=== PATIENT | male | born 1970 | race Caucasian/White ===

== ENCOUNTER 2016-03-25 08:15 | Emergency (ER) | payer BC ==
[2016-03-25 08:20] VITALS: BP 143/94
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
[2016-03-25] MEDS ORDERED: LORazepam TAB(*) 1 MG PO ONE (08:49)
[2016-03-25 09:13] LABS: Hematocrit 46 % (42-52); Hemoglobin 15.6 g/dl (14.0-18.0); Mean Corpuscular HGB Conc 34 g/dl (31-36); Mean Corpuscular Hemoglobin 29 pg (27-31); Mean Corpuscular Volume 85 fL (80-94); Mean Platelet Volume 8 um3 (7.4-10.4); Red Cell Distribution Width 13 % (10.5-15); White Blood Count 11.1 10^3/ul (3.5-10.8)
[2016-03-25 09:35] LABS: ALT 33 U/L (7-52); AST 17 U/L (13-39); Albumin 4.3 g/dL (3.2-5.2); Alkaline Phosphatase 75 U/L (34-104); Anion Gap 9 mmol/L (2-11); Blood Urea Nitrogen 24 mg/dL (6-24); CO2 Carbon Dioxide 22 mmol/L (22-32); Calcium 9.7 mg/dL (8.6-10.3); Chloride 106 mmol/L (101-111); EGFR Non-African American 39.6 (>60); Globulin 3.3 g/dL (2-4); Glucose 122 mg/dL (70-100); Potassium 4.1 mmol/L (3.5-5.0); Sodium 137 mmol/L (133-145); Total Protein 7.6 g/dL (6.4-8.9)
[2016-03-25 10:03] LABS: Acetaminophen < 15 mcg/mL; Alcohol < 10 mg/dL (<10); Salicylate < 2.50 mg/dL (<30)
[2016-03-25 10:09] LABS: Urine Bacteria Absent (Absent); Urine Bilirubin Negative (Negative); Urine Glucose Negative (Negative); Urine Nitrite Negative (Negative)
[2016-03-25 10:10] LABS: TSH (Thyroid Stimulating Horm) 0.88 mcIU/mL (0.34-5.60)
[2016-03-25 10:18] LABS: Benzodiazepine Urine Screen None Detected (None Detect)
== END 2016-03-25 13:23 | disposition home or self-care (01) ==
LOC: ED 08:15
DX: G47.9 Sleep disorder, unspecified (principal); F32.9 Major depressive disorder, single episode, unspecified; R10.9 Unspecified abdominal pain
CPT/HCPCS: 36415; 80053; 80307; 80320; 80329; 81003; 81015; 84443; 84484; 85025; 93005; 99284; A9270-GY; G0480

== ENCOUNTER 2017-03-25 22:07 | Emergency (ER) | payer BC ==
[2017-03-26] MEDS ORDERED: oxyCODONE/Acetamin 5/325 MG* TAB PO ONE (01:15)
[2017-03-26] MEDS ORDERED: predniSONE TAB* 20 MG PO ONE (01:15)
[2017-03-26 01:16] VITALS: BP 123/82
--- NOTE | 2017-03-26 01:32 | ED ---
Ray Gooden Tecjoon, scribed for Jennyfer Chavez MD on 03/25/17 at 2328 . Lower Extremity - HPI Summary HPI Summary: This patient is a 46 year old male presenting to [facility] with a chief complaint of sudden onset of left foot pain since 1900 today. The pain is described as an ache that became progressively worse. The pain is rated 8/10 in severity. Symptoms aggravated by nothing. Symptoms alleviated by nothing. Patient treated the pain with Motrin FEED WEIGHER. Patient denies fever. No HX of trauma - History of Current Complaint Chief Complaint: EDExtremityLower Stated Complaint: LT FOOT PAIN Time Seen by Provider: 03/25/17 23:12 Hx Obtained From: Patient Onset/Duration: Hours Severity Initially: Moderate Severity Currently: Moderate Pain Intensity: 8 Pain Scale Used: 0-10 Numeric Timing: Constant Location: Is Discrete @ - left ankle Associated Signs And Symptoms: Negative: Fever Aggravating Factor(s): Nothing Alleviating Factor(s): Nothing - Allergies/Home Medications Allergies/Adverse Reactions: Allergies Allergy/AdvReac Type Severity Reaction Status Date / Time codeine Allergy Nausea Verified 03/25/17 22:11 Iodinated Contrast- Oral and Allergy Difficulty Verified 03/25/17 22:11 IV Dye Breathing tramadol Allergy Nausea Verified 03/25/17 22:11 PMH/Surg Hx/FS Hx/Imm Hx Previously Healthy: No Endocrine/Hematology History: Denies: Hx Diabetes Cardiovascular History: Reports: Hx Angina, Hx Hypercholesterolemia, Hx Hypertension Denies: Hx Pacemaker/ICD Respiratory History: Reports: Hx Sleep Apnea - current CPAP user, compliant Denies: Hx Asthma, Hx Chronic Obstructive Pulmonary Disease (COPD) History: Reports: Hx Kidney Stones, Hx Renal Disease, Other Problems/ Disorders - chronic nephritis, lesion in kidney, calculus of kidney Sensory History: Reports: Hx Contacts or Glasses Denies: Hx Hearing Aid Opthamlomology History: Reports: Hx Contacts or Glasses Neurological History: Reports: Hx Headaches Psychiatric History: Denies: Hx Eating Disorder, Hx Panic Disorder, Hx of Violent Episodes Against Others - Cancer History Cancer Type, 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 Hx Chemotherapy: No - Surgical History Surgery Procedure, Year, and Place: 03/2013 - (right)partial kidney removal, [facility] Infectious Disease History: No Infectious Disease History: Reports: Hx Shingles Denies: Traveled Outside the [place] in Last 30 Days - Family History Known Family History: Positive: Cardiac Disease, Hypertension - Social History Alcohol Use: Rare Hx Substance Use: No Substance Use Type: Reports: None Hx Tobacco Use: Yes Smoking Status (MU): Former Smoker Type: Cigarettes Amount Used/How Often: socially Length of Time of Smoking/Using Tobacco: 1.5 years Have You Smoked in the Last Year: No Review of Systems Negative: Fever Positive: Other - left foot pain All Other Systems Reviewed And Are Negative: Yes Physical Exam - Summary Physical Exam Summary: VITAL SIGNS: Reviewed. GENERAL: Patient is a well-developed and nourished male who is lying comfortable in the stretcher. Patient is not in any acute respiratory distress. HEAD AND FACE: No signs of trauma. No ecchymosis, hematomas or skull depressions. No sinus tenderness. EYES: PERRLA, EOMI x 2, No injected conjunctiva, no nystagmus. EARS: Hearing grossly intact. Ear canals and tympanic membranes are within normal limits. MOUTH: Oropharynx within normal limits. NECK: Supple, trachea is midline, no adenopathy, no JVD, no carotid bruit, no c- spine tenderness, neck with full ROM. CHEST: Symmetric, no tenderness at palpation LUNGS: Clear to auscultation bilaterally. No wheezing or crackles. CVS: Regular rate and rhythm, S1 and S2 present, no murmurs or gallops appreciated. ABDOMEN: Soft, non-tender. No signs of distention. No rebound no guarding, and no masses palpated. Bowel sounds are normal. EXTREMITIES: FROM in all major joints, no edema. Tenderness over the left midfoot. NEURO: Alert and oriented x 3. No acute neurological deficits. Speech is normal and follows commands. SKIN: Dry and warm Triage Information Reviewed: Yes Vital Signs On Initial Exam: Initial Vitals Temp Pulse Resp BP Pulse Ox 98.4 F 97 18 132/97 98 03/25/17 22:11 03/25/17 22:11 03/25/17 22:11 03/25/17 22:11 03/25/17 22:11 Vital Signs Reviewed: Yes Diagnostics - Vital Signs Vital Signs Temp Pulse Resp BP Pulse Ox 03/25/17 22:11 98.4 F 97 18 132/97 98 - Laboratory Lab Statement: Any lab studies that have been ordered have been reviewed, and results considered in the medical decision making process. - Radiology Foot XR Xray Interpretation: No Acute Changes - Foot XR reveals, per radiologist, IMPRESSION: No evidence of fracture. ED physician has reviewed this radiology report. Radiology Interpretation Completed By: Radiologist Lower Extremity Course/Dx - Course Course Of Treatment: This patient is a 46 year old male presenting to [facility] with a chief complaint of left foot pain since 1900 today. The pain is described as an ache that became progressively worse. Foot XR reveals, per radiologist, IMPRESSION: No evidence of fracture. ED physician has reviewed this radiology report. Bloodwork Obtained. Urinalysis Obtained. In the ED course the patient was given Deltasone, Oxycodone. Patient will be diagnosed with left foot gout. Patient has a hx of renal insufficiency and as a result, cannot be treated with NSAIDs. Patient will instead be treated with steroids. Patient will be discharged and advised to follow up with PCP in 3 days. The patient is agreeable with this plan. - Diagnoses Provider Diagnoses: Gout of left foot Discharge - Discharge Plan Condition: Stable Disposition: HOME Prescriptions: oxyCODONE/Acetamin 5/325 MG* [Percocet 5/325 TAB*] 1 tab PO Q6H PRN #14 tab MDD 4 PRN Reason: Pain predniSONE TAB* [Deltasone TAB*] 40 mg PO DAILY #14 tab Patient Education Materials: Gout (ED) Referrals: Cory Duron MD [Primary Care Provider] - 3 Days Additional Instructions: Return to the ED for any new or worsening symptoms. The documentation as recorded by the Ray edwards Tecjoon accurately reflects the service I personally performed and the decisions made by Scott marie Abdul, MD.
--- NOTE | 2017-03-26 08:09 | RAD ---
HISTORY: Left foot pain COMPARISONS: None VIEWS: 3, Frontal, lateral, and oblique views of the left foot FINDINGS: BONE DENSITY: Normal. BONES: There is no displaced fracture. JOINTS: There is no arthropathy. ALIGNMENT: There is no dislocation. SOFT TISSUES: Unremarkable. OTHER FINDINGS: None. IMPRESSION: NO ACUTE OSSEOUS INJURY. IF SYMPTOMS PERSIST, RECOMMEND REPEAT IMAGING.
== END 2017-03-26 02:05 | disposition home or self-care (01) ==
LOC: ED 22:07
DX: M10.9 Gout, unspecified (principal); Z87.891 Personal history of nicotine dependence; Z88.5 Allergy status to narcotic agent; Z91.041 Radiographic dye allergy status
CPT/HCPCS: 99282; A9270-GY; J7512

== ENCOUNTER 2018-02-21 13:36 | Observation (INO) | payer BC ==
[2018-02-21] MEDS ORDERED: hydrALAZINE IV* 20 MG/ML VIAL IV SLOW PU ONE (15:58)
[2018-02-21] MEDS ORDERED: hydrALAZINE IV* 20 MG/ML VIAL ONE (15:58)
[2018-02-21] MEDS ORDERED: HYDROmorphone INJ* 2 MG/ML CARPUJECT SYRINGE IV SLOW PU ONE ×2 (16:40→19:02)
[2018-02-21] MEDS ORDERED: Ondansetron INJ* 2 MG/ML VIAL IV ONE (16:40)
[2018-02-21] MEDS ORDERED: HYDROmorphone INJ* 0.5 MG/0.5 ML SYRINGE ONE (16:49)
[2018-02-21 17:09] LABS: ABS Basophils 0 10^3/ul (0-0.2); ABS Eosinophils 0.1 10^3/ul (0-0.6); ABS Lymphocytes 1.1 10^3/ul (1.0-4.8); ABS Monocytes 0.4 10^3/ul (0-0.8); ABS Neutrophils 4.3 10^3/ul (1.5-7.7); ABS Nucleated RBC 0 10^3/ul; Eosinophil % 2.2 %; Hematocrit 45 % (42-52); Hemoglobin 15.8 g/dl (14.0-18.0); Lymphocyte % 19.1 %; Mean Corpuscular HGB Conc 35 g/dl (31-36); Mean Corpuscular Hemoglobin 31 pg (27-31); Mean Corpuscular Volume 87 fL (80-94); Mean Platelet Volume 8.1 fL (7.4-10.4); Nucleated Red Blood Cells % 0.2; Platelet Count 216 10^3/ul (150-450); Red Blood Count 5.16 10^6/ul (4.00-5.40); Red Cell Distribution Width 14 % (10.5-15)
[2018-02-21 17:31] LABS: Activated Partial Thrombo Time 32.5 seconds (26.0-36.3); INR 0.86 (0.77-1.02)
[2018-02-21 17:40] LABS: Albumin 4.4 g/dL (3.2-5.2); Albumin/Globulin Ratio 1.8 (1-3); BUN/Creatinine Ratio 14.6 (8-20); C Reactive Protein 1.33 mg/L (<8.01); Calcium 10.1 mg/dL (8.6-10.3); EGFR Non-African American 46.8 (>60); Globulin 2.4 g/dL (2-4); Potassium 4.1 mmol/L (3.5-5.0); Total Bilirubin 0.5 mg/dL (0.2-1.0); Total Protein 6.8 g/dL (6.4-8.9)
[2018-02-21] MEDS ORDERED: cloNIDine TAB* 0.1 MG ONE (18:17)
[2018-02-21] MEDS ORDERED: Enalaprilat IV* 1.25 MG/ML 2 ML VIAL (2.5 MG) IV ONE (18:23)
[2018-02-21 18:25] LABS: Erythrocyte Sed Rate 11 mm/Hr (0-14)
--- NOTE | 2018-02-21 18:57 | ED ---
Headache - HPI Summary HPI Summary: Patient presents with severe headache associated with jaw and posterior neck pain. Reports as throbbing. This started 2 weeks ago on a Tuesday. He was able to get through this then as it was not as bad. He reports it lasted about 16 hrs and did take an ibuprofen then. Had a repeat episode the following Tuesday and decided to see his dentist on Tuesday -reports dentist looked in the patient' s mouth and tapped on teeth, etc. and felt that there was nothing dental contributing to his pain. Pt states pain was controlled Tuesday. He is here today with return of pain which is worse since it's been at onset. He reports a throbbing pounding sensation in both sides of his neck and jaw and head. This is worse with moving his jaw, touching any part of his face or neck. He has had mild nausea with severe pain but no vomiting. He also has a "fuzzy TV screen" scotoma in his Lt vision. He also denies nasal congestion, sore throat, throat fullness, dysphagia, ear pain or pressure, sneezing, coughing, fever, chills, abdominal pain, chest pain, shortness of breath, back pain, numbness, tingling, weakness, memory issues or confusion, or balance issues. He denies any recent head injuries or falls and no known history of issues with his neck including arthritis or degenerative disc disease. H/o MANDUJANO's but never like this - has taken excederin in the past but was taking too much and having rebound MANDUJANO' s so tries to avoid too much med for MANDUJANO now. He does have HTN which requires multiple medications to control (currently on 4 ) and admits one of his meds was switched last month (he doesn't recall which one). Has not missed any meds. 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 Has been taking eliquis since to prevent further clotting. No current kidney injury of note. - History Of Current Complaint Chief Complaint: EDHeadache Stated Complaint: JAW PAIN/HBP/HEADACHE AND NECK PAIN Time Seen by Provider: 02/21/18 15:25 Hx Obtained From: Patient, Family/Ice Delivery Driver - - Allergies/Home Medications Allergies/Adverse Reactions: Allergies Allergy/AdvReac Type Severity Reaction Status Date / Time codeine Allergy Nausea Verified 02/16/18 22:11 Iodinated Contrast- Oral and Allergy Difficulty Verified 03/25/17 22:11 IV Dye Breathing tramadol Allergy Nausea Verified 03/25/17 22:11 Home Medications: Home Medications Apixaban* [Eliquis*] 2.5 mg PO BID 02/21/18 [History Confirmed 02/21/18] Furosemide 20 mg PO DAILY 02/21/18 [History Confirmed 02/21/18] Labetalol HCl 300 mg PO TID 02/21/18 [History Confirmed 02/21/18] Losartan Potassium 25 mg PO DAILY 02/21/18 [History Confirmed 02/21/18] PMH/Surg Hx/FS Hx/Imm Hx Previously Healthy: Yes Endocrine/Hematology History: Reports: Hx Anticoagulant Therapy - eliquis, Hx Coagulopothy - ? Denies: Hx Diabetes, Hx Thyroid Disease, Hx Anemia, Autoimmune Disease Cardiovascular History: Reports: Hx Angina, Hx Hypercholesterolemia, Hx Hypertension - on 4 meds Denies: Hx Aneurysm, Hx Myocardial Infarction, Hx Pacemaker/ICD Respiratory History: Reports: Hx Sleep Apnea - current CPAP user, compliant Denies: Hx Asthma, Hx Chronic Obstructive Pulmonary Disease (COPD) History: Reports: Hx Kidney Stones, Hx Renal Disease, Other Problems/ Disorders - chronic nephritis, renal carcinoma, calculus of kidney Musculoskeletal History: Denies: Hx Arthritis Sensory History: Reports: Hx Contacts or Glasses Denies: Hx Hearing Aid Opthamlomology History: Reports: Hx Contacts or Glasses Neurological History: Reports: Hx Headaches Denies: Hx CVA, Hx Migraine, Hx Seizures, Hx Spinal Cord Injury, Hx Transient Ischemic Attacks (TIA) Psychiatric History: Denies: Hx Eating Disorder, Hx Panic Disorder, Hx of Violent Episodes Against Others - Cancer History Cancer Type, 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 Hx Chemotherapy: No - Surgical History Surgery Procedure, Year, and Place: 03/2013 - (right)partial kidney removal, [facility] [place] [facility] - Immunization History Immunizations Up to Date: Yes Infectious Disease History: No Infectious Disease History: Reports: Hx Shingles Denies: Traveled Outside the [place] in Last 30 Days - Family History Known Family History: Positive: Cardiac Disease, Hypertension - Social History Lives: With Family Alcohol Use: Rare Hx Substance Use: No Substance Use Type: Reports: None Hx Tobacco Use: Yes - not currently Smoking Status (MU): Former Smoker Type: Cigarettes Amount Used/How Often: socially Length of Time of Smoking/Using Tobacco: 1.5 years Have You Smoked in the Last Year: No Review of Systems Constitutional: Negative Negative: Fever, Chills, Fatigue Eyes: Other - scotoma as in HPI Negative: Photophobia, Blurred Vision, Diplopia, Drainage, Erythema ENT: Negative Cardiovascular: Negative Respiratory: Negative Positive: Nausea. Negative: Abdominal Pain, Vomiting, Diarrhea Genitourinary: Negative Positive: Arthralgia. Negative: Decreased ROM Skin: Negative Positive: Headache. Negative: Weakness, Paresthesia, Numbness, Syncope, Slurred Speech Psychological: Other - concerned about level of pain All Other Systems Reviewed And Are Negative: Yes Physical Exam Triage Information Reviewed: Yes Vital Signs On Initial Exam: Initial Vitals Temp Pulse Resp BP Pulse Ox 98.4 F 83 18 165/117 98 02/21/18 13:43 02/21/18 13:43 02/21/18 13:43 02/21/18 13:43 02/21/18 13:43 Vital Signs Reviewed: Yes Appearance: Positive: Pain Distress - pt's sclera are injected, appears tired, winces with speaking at times - difficult to tell if this is from his speaking/ moving jaw or if pain simply comes/goes, Obese Skin: Positive: Warm, Skin Color Reflects Adequate Perfusion, Dry - no rash over face/head/neck Head/Face: Positive: Temporal Artery Tenderness - mild B/L. Negative: Normal Head/Face Inspection - atraumatic but madibular angles, anterior and posterior cervical mm are TTP; skin over zygomatic region and mandible TTP Eyes: Positive: EOMI, MICHELL - no photophobia, Conjunctiva Clear. Negative: Conjunctiva Inflammed, Discharge ENT: Positive: Hearing grossly normal, Nasal congestion - mild, Uvula midline. Negative: Pharynx normal, Pharyngeal erythema, TMs normal - occluded by cerumen , Tonsillar swelling, Tonsillar exudate, Trismus, Muffled voice, Hoarse voice, Dental tenderness, Sinus tenderness Neck: Positive: No Lymphadenopathy, Tenderness @ Respiratory/Lung Sounds: Positive: Clear to Auscultation, Breath Sounds Present. Negative: Stridor, Unable to speak in full sentences, Fatigue Cardiovascular: Positive: Normal, RRR, S1, S2. Negative: Murmur, Rub Abdomen Description: Positive: Soft Musculoskeletal: Positive: Normal, Strength/ROM Intact Neurological: Positive: Normal, Sensory/Motor Intact, Alert, Oriented to Person Place, Time, CN Intact II-III, Finger to Nose - no ataxia appreciated, Facial Symmetry, Speech Normal, Other - (-) [place], (-) [place]. Negative: Pronator Drift Present Psychiatric: Positive: Anxious - Jennyfer Coma Scale Best Eye Response: 4 - Spontaneous Best Motor Response: 6 - Obeys Commands Best Verbal Response: 5 - Oriented Coma Scale Total: 15 Diagnostics - Vital Signs Vital Signs Temp Pulse Resp BP Pulse Ox 02/21/18 18:10 79 12 174/116 97 02/21/18 18:00 79 14 175/120 97 02/21/18 17:50 79 15 182/110 97 02/21/18 17:40 76 12 184/115 97 02/21/18 17:30 76 15 175/119 95 02/21/18 17:20 84 13 179/122 96 02/21/18 17:10 109 19 181/112 97 02/21/18 17:04 19 02/21/18 17:00 75 99 02/21/18 16:33 83 171/104 99 02/21/18 16:26 84 168/106 98 02/21/18 16:00 78 98 02/21/18 15:56 83 97 02/21/18 13:43 98.4 F 83 18 165/117 98 - Laboratory Lab Results: Lab Results 02/21/18 02/21/18 02/21/18 Range/Units 16:10 16:10 16:10 WBC 6.0 (3.5-10.8) 10^3/ul RBC 5.16 (4.00-5.40) 10^6/ul Hgb 15.8 (14.0-18.0) g/dl Hct 45 (42-52) % MCV 87 (80-94) fL MCH 31 (27-31) pg MCHC 35 (31-36) g/dl RDW 14 (10.5-15) % Plt Count 216 (150-450) 10^3/ul MPV 8.1 (7.4-10.4) fL Neut % (Auto) 71.6 % Lymph % (Auto) 19.1 % Alexander % (Auto) 6.3 % Eos % (Auto) 2.2 % Baso % (Auto) 0.8 % Absolute Neuts (auto) 4.3 (1.5-7.7) 10^3/ul Absolute Lymphs (auto) 1.1 (1.0-4.8) 10^3/ul Absolute Monos (auto) 0.4 (0-0.8) 10^3/ul Absolute Eos (auto) 0.1 (0-0.6) 10^3/ul Absolute Basos (auto) 0 (0-0.2) 10^3/ul Absolute Nucleated RBC 0 10^3/ul Nucleated RBC % 0.2 ESR 11 (0-14) mm/Hr INR (Anticoag Therapy) 0.86 (0.77-1.02) APTT 32.5 (26.0-36.3) seconds D-Dimer, Quantitative < 200 (Less Than 230) ng/mL Sodium (135-145) mmol/L Potassium (3.5-5.0) mmol/L Chloride (101-111) mmol/L Carbon Dioxide (22-32) mmol/L Anion Gap (2-11) mmol/L BUN (6-24) mg/dL Creatinine (0.67-1.17) mg/dL Est GFR ( Amer) (>60) Est GFR (Non-Af Amer) (>60) BUN/Creatinine Ratio (8-20) Glucose (70-100) mg/dL Lactic Acid 1.3 (0.5-2.0) mmol/L Calcium (8.6-10.3) mg/dL Total Bilirubin (0.2-1.0) mg/dL AST (13-39) U/L ALT (7-52) U/L Alkaline Phosphatase (34-104) U/L Troponin I (<0.04) ng/mL C-Reactive Protein (<8.01) mg/L Total Protein (6.4-8.9) g/dL Albumin (3.2-5.2) g/dL Globulin (2-4) g/dL Albumin/Globulin Ratio (1-3) 02/21/18 Range/Units 16:10 WBC (3.5-10.8) 10^3/ul RBC (4.00-5.40) 10^6/ul Hgb (14.0-18.0) g/dl Hct (42-52) % MCV (80-94) fL MCH (27-31) pg MCHC (31-36) g/dl RDW (10.5-15) % Plt Count (150-450) 10^3/ul MPV (7.4-10.4) fL Neut % (Auto) % Lymph % (Auto) % Alexander % (Auto) % Eos % (Auto) % Baso % (Auto) % Absolute Neuts (auto) (1.5-7.7) 10^3/ul Absolute Lymphs (auto) (1.0-4.8) 10^3/ul Absolute Monos (auto) (0-0.8) 10^3/ul Absolute Eos (auto) (0-0.6) 10^3/ul Absolute Basos (auto) (0-0.2) 10^3/ul Absolute Nucleated RBC 10^3/ul Nucleated RBC % ESR (0-14) mm/Hr INR (Anticoag Therapy) (0.77-1.02) APTT (26.0-36.3) seconds D-Dimer, Quantitative (Less Than 230) ng/mL Sodium 138 (135-145) mmol/L Potassium 4.1 (3.5-5.0) mmol/L Chloride 107 (101-111) mmol/L Carbon Dioxide 23 (22-32) mmol/L Anion Gap 8 (2-11) mmol/L BUN 23 (6-24) mg/dL Creatinine 1.58 H (0.67-1.17) mg/dL Est GFR ( Amer) 56.7 (>60) Est GFR (Non-Af Amer) 46.8 (>60) BUN/Creatinine Ratio 14.6 (8-20) Glucose 111 H (70-100) mg/dL Lactic Acid (0.5-2.0) mmol/L Calcium 10.1 (8.6-10.3) mg/dL Total Bilirubin 0.50 (0.2-1.0) mg/dL AST 17 (13-39) U/L ALT 28 (7-52) U/L Alkaline Phosphatase 73 (34-104) U/L Troponin I 0.01 (<0.04) ng/mL C-Reactive Protein 1.33 (<8.01) mg/L Total Protein 6.8 (6.4-8.9) g/dL Albumin 4.4 (3.2-5.2) g/dL Globulin 2.4 (2-4) g/dL Albumin/Globulin Ratio 1.8 (1-3) Result Diagrams: 02/21/18 16:10 02/21/18 16:10 Lab Statement: Any lab studies that have been ordered have been reviewed, and results considered in the medical decision making process. National Institutes Of Health - NIH Scale Level of Consciousness: Alert/Keenly Responsive Ask Patient the Month and His/Her Age: Both Correct Ask Pt to Open/Close Eyes and Technical Illustrations Map Inker/Release Non-Paretic Hand: Both Correctly Best Gaze (Only Horizontal Eye Movement): Normal Visual Field Testing: No Visual Loss Facial Paresis-Pt to Smile & Close Eyes or Grimace Symmetry: Normal/Symmetrical Motor Function - Right Arm: No Drift-Holds 10 Seconds Motor Function - Left Arm: No Drift-Holds 10 Seconds Motor Function - Right Leg: No Drift-Holds 10 Seconds Motor Function - Left Leg: No Drift-Holds 10 Seconds Limb Ataxia-Must be out of Proportion to Weakness Present: Absent Sensory (Use Pinprick to Test Arms/Legs/Trunk/Face): Normal Best Language (Describe Picture, Name Items): No Aphasia Dysarthria (Read Several Words): Normal Extinction and Inattention: No Abnormality Total Score: 0 Re-Evaluation - Re-Evaluation First Eval Re-Evaluation Time: 19:15 Change: Unchanged Comment: The patient has a chief complaint of a headache since 13:00 02/21/18. He originally thought it was a dental problem, but his dentist claims that it is not a dental problem. He claims that two weeks [employer] he had similar symptoms which lasted for 16-18 hours. He rates his headache as a 10/10. He also c/o neck pain and reports N/V which started in the ED. He denies back pain or chest pain and is not photophobic. No relief of pain w/ hydralazine nor dilaudid, neither of which reduced his BP. Finally had reduction of BP w/ vasotec but reports MANDUJANO and throbbing worse with this change. Discussed care w/ Dr. Harman. Signed over to Dr. Chavez at this time due to shift change. Second Eval Re-Evaluation Time: 20:00 Change: Improved Comment: MANDUJANO is better. BP is lower. Headache Course/Dx - Course Course Of Treatment: Pt presents w/ MANDUJANO, jaw and neck pain. Recurrent episode from 2 weeks ago. Pt thought it was dental pain but recent dental exam negative per pt. Upon arrival, ruled out intracranial hemorrhage (pt in on eliquis), infection, dissection, CVA via CT/NIH scale/lack of neuro deficits, temporal arteritis, meningitis, worsening renal function. With elevated BP, end organs were assessed w/o acute abnormality (trop neg, ECG NSR w/o ST elevations, no change in vision). Attempted pain control by reducing BP w/ hydralazine. Finding this to be ineffective, attempted dialuadid w/ zofran. No change in BP or MANDUJANO and pt started vomiting. Tried vasotec and finally started reducing BP somewhat however pt reports feeling worse. 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 Discussed CTA of head and neck however pt has allergy to IV contrast and study w/o these would be inconclusive. We also discussed possibility of ordering MRA but given lack of neuro deficits and high BP, would try to address these first and transition to imaging if needed. Signed out to Dr. Chavez after pt received vasotec. Discovered pt has had CT w/ IV constrast in the past when he was pre-tx'd w/ steroid - will try again today as he is not improving w/ meds. Dr. Chavez to order this imaging plus additional medications. In gaurded condition at time of transition of care. - Diagnoses Provider Diagnoses: Headache, HTN (hypertension) Discharge - Sign-Out/Discharge Documenting (check all that apply): Patient Departure, Sign-Out Patient Signing out patient TO: Jennyfer Chavez - Discharge Plan Condition: Fair Disposition: ADMITTED TO [facility] - Billing Disposition and Condition Condition: FAIR Disposition: Admitted to [facility]
[2018-02-21] MEDS ORDERED: Labetalol IV* 5 MG/ML 20 ML VIAL IV PUSH ONE (19:02)
[2018-02-21] MEDS ORDERED: Metoclopramide IV* 5 MG/ML 2 ML VIAL IV SLOW PU ONE (19:14)
[2018-02-21] MEDS ORDERED: diPHENhydraMINE PO* 25 MG PO ONE (19:15)
[2018-02-21] MEDS ORDERED: Acetaminophen TAB* 325 MG PO ONE (19:15)
[2018-02-21] MEDS ORDERED: Ketorolac INJ* 30 MG/ML 1 ML VIAL IV PUSH ONE (19:15)
[2018-02-21] MEDS ORDERED: Dexamethasone IV* 4 MG/ML 1 ML (4 MG) IV SLOW PU ONE (19:16)
[2018-02-21] MEDS ORDERED: Magnesium Sulfate 2 GM IV* 2 GM/50 ML BAG IVPB ONE (19:17)
--- NOTE | 2018-02-21 19:22 | ED ---
Progress - Progress Note Progress Note: This patient was signed out from Melina JOHNSTON to Dr. Chavez at 19:02/21/18. The patient has a chief complaint of a headache since :02/21/18. He originally thought it was a dental problem, but his dentist claims that it is not a dental problem. He claims that two weeks [employer] is when his headaches started , the first of which lasted for 16-18 hours. He took advil. He rates his headache as a 10/10. He also c/o neck pain and reports N/V which started in the ED. He denies back pain or chest pain and is not photophobic. CTA Head/neck: HEAD IMPRESSION: No acute abnormality. The left vertebral artery not seen in the intracranial portion and likely an anatomical variant. NECK IMPRESSION: 1. No acute abnormality. 2. The left vertebral artery is extremely small in caliber and not visualized beyond the C3 segment and likely represents an anatomical variant. ED physician has reviewed this imaging report. Case discussed with Dr. Rocha, hospitalist, who accepted the patient for admission. Re-Evaluation - Re-Evaluation First Eval Re-Evaluation Time: 19:15 Change: Unchanged Comment: The patient has a chief complaint of a headache since :02/21/18. He originally thought it was a dental problem, but his dentist claims that it is not a dental problem. He claims that two weeks [employer] he had similar symptoms which lasted for 16-18 hours. He rates his headache as a 10/10. He also c/o neck pain and reports N/V which started in the ED. He denies back pain or chest pain and is not photophobic. Second Eval Re-Evaluation Time: 20:00 Change: Improved Comment: MANDUJANO is better. BP is lower. Course/Dx - Course Course Of Treatment: This patient was signed out from Melina JOHNSTON to Dr. Chavez at 19:02/21/18. The patient has a chief complaint of a headache since :02/21/18. He originally thought it was a dental problem, but his dentist claims that it is not a dental problem. He claims that two weeks [employer] is when his headaches started, the first of which lasted for 16-18 hours. He took advil. He rates his headache as a 10/10. He also c/o neck pain and reports N/V which started in the ED. He denies back pain or chest pain and is not photophobic. A CTA head/neck was ordered. CTA Head/neck: HEAD IMPRESSION: No acute abnormality. The left vertebral artery not seen in the intracranial portion and likely an. anatomical variant. NECK IMPRESSION: 1. No acute abnormality. 2. The left vertebral artery is extremely small in caliber and not visualized. beyond the C3 segment and likely represents an anatomical variant. ED physician has reviewed this imaging report. Lab work obtained and WNL. In the ED course the patient was given Toradol IV, Reglan IV, Zofran IV and Iodixanol (Contrast) IV. Case discussed with Dr. Rocha, hospitalist, who accepted the patient for admission. - Diagnoses Provider Diagnoses: Headache, HTN (hypertension) - Provider Notifications Discussed Care Of Patient With: Zakiya Rocha Time Discussed With Above Provider: 22:25 Instructed by Provider To: Admit As Inpatient Discharge - Sign-Out/Discharge Documenting (check all that apply): Patient Departure - admit, Receiving Sign- Out Receiving patient FROM: Melina Carrasquillo - Discharge Plan Condition: Fair Disposition: ADMITTED TO [facility] - Billing Disposition and Condition Condition: FAIR Disposition: Admitted to [facility] - Attestation Statements Document Initiated by Adan: Yes Documenting Scribe: Jayson Curtis Provider For Whom Adan is Documenting (Include Credential): Jennyfer Chavez MD Scribe Attestation: Jayson Gooden scribed for Jennyfer Chavez MD on 02/22/18 at 0418. Scribe Documentation Reviewed: Yes Provider Attestation: The documentation as recorded by the Jayson edwards accurately reflects the service I personally performed and the decisions made by Britany marie MD Status of Scribe Document: Viewed
[2018-02-21] MEDS ORDERED: Iodixanol* (CONTRAST) 320 MG/ML 100 ML SDV IV ONE (19:58)
[2018-02-21] MEDS ORDERED: EPINEPHRINE 1 MG/ML 1 ML VIAL ONE (20:38)
[2018-02-21] MEDS ORDERED: Ondansetron INJ* 2 MG/ML VIAL IV PRN (22:55)
[2018-02-21] MEDS ORDERED: HYDROmorphone INJ* 0.5 MG/0.5 ML SYRINGE IV SLOW PU PRN (22:55)
[2018-02-21] MEDS ORDERED: PROCHLORPERAZINE INJ 5 MG/ML 2 ML VIAL IV PRN (22:55)
[2018-02-21] MEDS ORDERED: Cyclobenzaprine TAB* 10 MG PO ONE (22:55)
[2018-02-21] MEDS ORDERED: hydrALAZINE IV* 20 MG/ML VIAL IV SLOW PU PRN (22:59)
[2018-02-22] MEDS: Apixaban* 2.5 MG TAB PO SCH ×2 (00:36→09:07)
[2018-02-22] MEDS: Labetalol TAB* 300 MG PO SCH ×3 (00:37→13:05)
--- NOTE | 2018-02-22 01:53 | HP ---
CC: Dr. Duron; Dr. Salgado * HISTORY AND PHYSICAL: DATE OF ADMISSION: 02/21/18 PRIMARY CARE PROVIDER: Dr. Duron. ONCOLOGIST: Dr. Salgado. CHIEF COMPLAINT: Headache. HISTORY OF PRESENT ILLNESS: Mr. Mccray is a 47-year-old male, who states that he woke up this morning and suddenly developed headache that started at the base of his neck and jaw and radiated up the back of his head, to the top of the head. He said within 1 hour, the headache was very severe. He described it as a throbbing pain. He ultimately presented to the emergency room for evaluation due to the severity of the pain. He had no associated light or sound sensitivity. He has had no fevers or chills. He states he had a similar episode approximately 2 Sundays ago. His headache now is down from a 10/10 to a 4/10. He, however, is concerned about going home in case the pain flares again. Additionally, he is concerned because he feels that his mouth/throat are somewhat swollen. He thinks it may have been due to frequent vomiting that was occurring earlier during the ER stay, though he also is allergic to CONTRAST DYE, and he received a CTA of the head after premedication. He feels more comfortable being admitted under observation status to be monitored overnight. PAST MEDICAL HISTORY: 1. Hypertension. 2. History of renal cell carcinoma. 3. 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 4. Obstructive sleep apnea. 5. Hypertriglyceridemia. PAST SURGICAL HISTORY: Right partial nephrectomy. MEDICATIONS: 1. Losartan 25 mg p.o. daily. 2. Labetalol 300 mg p.o. t.i.d. 3. Diltiazem CD 120 mg p.o. daily. 4. Eliquis 2.5 mg p.o. b.i.d. 5. Lasix 20 mg p.o. daily. ALLERGIES: CODEINE, TRAMADOL, and IV CONTRAST DYE. FAMILY HISTORY: Mom has a history of seizure disorder. There is also questionable dementia. His father was murdered. SOCIAL HISTORY: The patient does not smoke. He does not drink alcohol. 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 He is . He has 2 children. He indicates that his would be his healthcare proxy. REVIEW OF SYSTEMS: A complete 11-system review of systems is obtained. Pertinent positives and negatives are as per HPI, and otherwise negative. PHYSICAL EXAMINATION GENERAL: The patient is a well-developed, middle-aged male seen lying in the stretcher, in no acute distress. VITAL SIGNS: Blood pressure 157/111, pulse 94, respirations 18, temp 98.2, O2 sat 95% on room air. HEENT: Pupils are equal and round. Extraocular muscles are intact. Oropharynx is clear. There is slight erythema on the posterior pharynx. I do not see any obvious swelling. There is no submandibular, cervical, or supraclavicular adenopathy. Thyroid is not enlarged. No thyroid nodule is noted. PULMONARY: Lungs are clear to auscultation bilaterally. CARDIAC: Normal S1 and S2. Regular rate and rhythm. I do not appreciate any murmurs. ABDOMEN: Bowel sounds are present. Abdomen is soft, nontender, and nondistended. MUSCULOSKELETAL: There is no cyanosis or clubbing of the digits. There is full active range of motion of all 4 extremities. There is no edema. NEURO: Cranial nerves II through XII are grossly intact. Sensation is intact to light touch throughout. Strength is 5/5 and symmetric in both upper and lower extremities bilaterally. PSYCHIATRIC: The patient is alert. He is oriented x3. Affect appears appropriate. SKIN: Warm and dry. There are no rashes. DIAGNOSTIC STUDIES/LAB DATA: WBC 6.0, hemoglobin 15.8, hematocrit 45, platelets 216. INR 0.86, D-dimer less than 200. Sodium 138, potassium 4.1, chloride 107, CO2 23, BUN 23, creatinine 1.58, glucose 111, lactic acid 1.3, calcium 10.1. Bilirubin 0.5, AST 17, ALT 28, alk phos 73. Troponin 0.01. CRP 1.33. Albumin 4.4. CT brain reveals no evidence for acute intracranial abnormality. There is dolichoectasia of the basilar artery. CTA head: There is no acute abnormality. The left vertebral artery is extremely small in caliber and not visualized beyond the C3 segment and likely represent an anatomical variant. EKG reveals normal sinus rhythm without any acute ST-T wave abnormalities. ASSESSMENT AND PLAN: Mr. Mccray is a 47-year-old male with a history of hypertension; renal cell carcinoma, status post partial nephrectomy; obstructive sleep apnea, who presents to the emergency room with complaints of severe headache. 1. Headache. At this point, the patient's headache is improved from when he presented to the emergency room, though not completely resolved. My suspicion is the headache represents a tension headache. He denies any prior history of migraines. There is no light or sound sensitivity to indicate that this headache is a migraine. For now, we will utilize p.r.n. Dilaudid for severe pain. He received Decadron, Benadryl, Dilaudid, ketorolac, magnesium, and Reglan in the emergency room. At this point, he is somewhat groggy. The patient will try to sleep now with the CPAP on and see how he feels in the morning. Of note, the patient's blood pressure has been at times markedly elevated; however, it is unclear if the blood pressure is driving the headache, which seems unlikely or if the headache is driving the blood pressure. He also has not had his evening antihypertensive. 2. Hypertension as above. The patient's blood pressure has been at times markedly elevated. He received enalapril and hydralazine in the emergency room. His blood pressure is now creeping back up. He has not taken his evening dose of labetalol and this will be given now. His blood pressures will be monitored; however, if they remain elevated, he will need further adjustments in his antihypertensive regimen. 3. Obstructive sleep apnea. The patient utilizes CPAP plus 9 at home. This will be continued here. 4. History of renal cell carcinoma with right renal vein thrombosis and stage 3 chronic kidney disease. At this point, the patient's creatinine is stable. We need to avoid nephrotoxic agents. No further ketorolac will be utilized. The patient will remain on Eliquis for the history of thrombosis. 5. DVT prophylaxis. According to the Adult Thrombosis Prophylaxis Risk Factor Assessment Guide, the patient has a total risk factor score of 4 making him high risk. He is already on Eliquis and this will act as his DVT prophylaxis. 6. Code status is full. TIME SPENT: Sixty-five minutes was spent admitting this patient. [id number]/[facility] #: [id number] JESSICA
[2018-02-22 03:24] LABS: Urine Appearance Clear; Urine Bacteria Absent (Absent); Urine Bilirubin Negative (Negative); Urine Blood Negative (Negative); Urine Color Yellow; Urine Glucose 1+(50 mg/dL) (Negative); Urine Ketones Negative (Negative); Urine Nitrite Negative (Negative); Urine Protein 3+(>=500 mg/dL) (Negative); Urine Red Blood Cell Absent (Absent); Urine Specific Gravity 1.046 (1.010-1.030); Urine Urobilinogen Negative (Negative); Urine White Blood Cell Absent (Absent)
[2018-02-22] MEDS ORDERED: Losartan TAB* 25 MG PO SCH (09:00)
[2018-02-22] MEDS ORDERED: Furosemide TAB* 20 MG PO SCH (09:00)
[2018-02-22] MEDS ORDERED: Diltiazem CD CAP* 120 MG PO SCH (09:00)
[2018-02-22 16:19] VITALS: BP 140/84
== END 2018-02-22 17:00 | disposition home or self-care (01) ==
LOC: ED 13:36 → MED 22:55
PROVIDERS: ADMIT Hospitalist; ATTEND Hospitalist
DX: R51 Headache (principal); I10 Essential (primary) hypertension; Z85.528 Personal history of other malignant neoplasm of kidney; I82.90 Acute embolism and thrombosis of unspecified vein; G47.33 Obstructive sleep apnea (adult) (pediatric); E78.1 Pure hyperglyceridemia; Z79.01 Long term (current) use of anticoagulants; Z87.891 Personal history of nicotine dependence
CPT/HCPCS: 36415; 70450; 70496; 70498; 80053; 81003; 81015; 83605; 84484; 85025; 85379; 85610; 85652; 85730; 86140; 93005; 94660; 96374; 96375; 96376; 99285; A9270-GY; G0378; J0360; J1100; J1170; J1885; J2405; J2765; J3475; Q9967

== ENCOUNTER 2018-07-10 14:30 | Emergency (ER) | payer BC ==
--- NOTE | 2018-07-10 16:32 | ED ---
Hypertension - HPI Summary HPI Summary: This pt is a 48 y/o male, with hx of HTN, presenting to [facility] c/o intermittent elevated blood pressure for the past few weeks. He notes he has been diagnosed with HTN a long time ago and is normally controlled with antihypertensive medications. However he was recently diagnosed with bilateral TMJ and since then his blood pressure has been higher than usual. He was told there isn't anything to do surgically and was given a school traffic guard by his dentist. Pt has been wearing the school traffic guard for 2 months now. Pt reports today while at work he took his blood pressure and it was 160/110. He states having nausea and feeling heart flutter. Denies vomiting, diarrhea, constipation, chest pain. Pt has an upcoming appointment with Dr. Tsai to get his HTN under control. - History of Current Complaint Chief Complaint: EDHypertension Stated Complaint: BP HIGH PER PT Time Seen by Provider: 07/10/18 16:19 Hx Obtained From: Patient Onset/Duration: Started Weeks Ago, Still Present Timing: Lasting Weeks Aggravating Factor(s): Nothing Alleviating Factor(s): Nothing Associated Signs & Symptoms: Other: - POSITIVE: nausea, heart fluttering. NEGATIVE: vomiting, diarrhea, constipation, chest pain Related Hx: Diagnosed As: - Hypertension - Allergies/Home Medications Allergies/Adverse Reactions: Allergies Allergy/AdvReac Type Severity Reaction Status Date / Time codeine Allergy Nausea Verified 07/10/18 14:47 Iodinated Contrast- Oral and Allergy Difficulty Verified 07/10/18 14:47 IV Dye Breathing tramadol Allergy Nausea Verified 07/10/18 14:47 Home Medications: Home Medications Apixaban* [Eliquis*] 2.5 mg PO BID 07/10/18 [History Confirmed 07/10/18] Furosemide TAB* [Lasix TAB*] 20 mg PO DAILY 07/10/18 [History Confirmed 07/10/18 ] Labetalol TAB* [Trandate TAB*] 300 mg PO TID 07/10/18 [History Confirmed ] Losartan TAB* [Cozaar TAB*] 25 mg PO DAILY 07/10/18 [History Confirmed 07/10/18] dilTIAZem HCl [Diltiazem ER] 120 mg PO DAILY 07/10/18 [History Confirmed ] PMH/Surg Hx/FS Hx/Imm Hx Endocrine/Hematology History: Reports: Hx Anticoagulant Therapy - eliquis Denies: Hx Diabetes, Hx Thyroid Disease, Hx Anemia Cardiovascular History: Reports: Hx Angina, Hx Hypercholesterolemia, Hx Hypertension - on 4 meds Denies: Hx Aneurysm, Hx Myocardial Infarction, Hx Pacemaker/ICD Respiratory History: Reports: Hx Sleep Apnea - current CPAP user, compliant Denies: Hx Asthma, Hx Chronic Obstructive Pulmonary Disease (COPD) History: Reports: Hx Kidney Stones, Hx Renal Disease, Other Problems/ Disorders - chronic nephritis, renal carcinoma, calculus of kidney Musculoskeletal History: Denies: Hx Arthritis Sensory History: Reports: Hx Contacts or Glasses Denies: Hx Hearing Aid Opthamlomology History: Reports: Hx Contacts or Glasses Neurological History: Reports: Hx Headaches Denies: Hx CVA, Hx Migraine, Hx Seizures, Hx Spinal Cord Injury, Hx Transient Ischemic Attacks (TIA) Psychiatric History: Denies: Hx Eating Disorder, Hx Panic Disorder, Hx of Violent Episodes Against Others - Cancer History Cancer Type, 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 Hx Chemotherapy: No - Surgical History Surgery Procedure, Year, and Place: 03/2013 - (right)partial kidney removal, [facility] Infectious Disease History: No Infectious Disease History: Reports: Hx Shingles Denies: Traveled Outside the [place] in Last 30 Days - Family History Known Family History: Positive: Cardiac Disease, Hypertension - Social History Alcohol Use: Rare Hx Substance Use: No Substance Use Type: Reports: None Hx Tobacco Use: Yes - not currently Smoking Status (MU): Former Smoker Type: Cigarettes Amount Used/How Often: socially Length of Time of Smoking/Using Tobacco: 1.5 years Have You Smoked in the Last Year: No Review of Systems Negative: Fever Positive: Palpitations. Negative: Chest Pain Positive: Nausea. Negative: Vomiting, Diarrhea, Other - constipation Musculoskeletal: Negative Skin: Negative All Other Systems Reviewed And Are Negative: Yes Physical Exam - Summary Physical Exam Summary: VITAL SIGNS: Reviewed. GENERAL: Patient is a well-developed and nourished male who is lying comfortable in the stretcher. Patient is not in any acute respiratory distress. HEAD AND FACE: No signs of trauma. No ecchymosis, hematomas or skull depressions. No sinus tenderness. EYES: PERRLA, EOMI x 2, No injected conjunctiva, no nystagmus. EARS: Hearing grossly intact. Ear canals and tympanic membranes are within normal limits. MOUTH: Oropharynx within normal limits. NECK: Supple, trachea is midline, no adenopathy, no JVD, no carotid bruit, no c- spine tenderness, neck with full ROM. CHEST: Symmetric, no tenderness at palpation LUNGS: Clear to auscultation bilaterally. No wheezing or crackles. CVS: Regular rate and rhythm, S1 and S2 present, no murmurs or gallops appreciated. ABDOMEN: Soft, non-tender. No signs of distention. No rebound no guarding, and no masses palpated. Bowel sounds are normal. EXTREMITIES: FROM in all major joints, no edema, no cyanosis or clubbing. NEURO: Alert and oriented x 3. No acute neurological deficits. Speech is normal and follows commands. SKIN: Dry and warm Triage Information Reviewed: Yes Vital Signs On Initial Exam: Initial Vitals Temp Pulse Resp BP Pulse Ox 98.4 F 78 18 177/111 98 07/10/18 14:42 07/10/18 14:42 07/10/18 14:42 07/10/18 14:42 07/10/18 14:42 Vital Signs Reviewed: Yes Diagnostics - Vital Signs Vital Signs Temp Pulse Resp BP Pulse Ox 07/10/18 16:20 77 173/107 98 07/10/18 16:19 74 98 07/10/18 14:42 98.4 F 78 18 177/111 98 - Laboratory Result Diagrams: 07/10/18 16:03 07/10/18 16:03 Lab Statement: Any lab studies that have been ordered have been reviewed, and results considered in the medical decision making process. - Radiology Chest XR Radiology Interpretation Completed By: Radiologist Summary of Radiographic Findings: IMPRESSION: No evidence for acute intrathoracic disease. Dr. Heart has reviewed this report. - EKG 16:54 Cardiac Rate: NL - at 70 bpm EKG Rhythm: Sinus Rhythm EKG Comparison: No Significant Change - similar to prior EKG on 02/21/18. Summary of EKG Findings: No ST elevations. Re-Evaluation - Re-Evaluation First Eval Re-Evaluation Time: 20:16 Comment: Pt reports feeling better. He will be discharged home. Hypertension Course/Dx - Course Assessment/Plan: This pt is a 48 y/o male, with hx of HTN, presenting to [facility] c /o intermittent elevated blood pressure for the past few weeks. He notes he has been diagnosed with HTN a long time ago and is normally controlled with antihypertensive medications. However he was recently diagnosed with bilateral TMJ and since then his blood pressure has been higher than usual. He was told there isn't anything to do surgically and was given a school traffic guard by his dentist. Pt has been wearing the school traffic guard for 2 months now. Pt reports today while at work he took his blood pressure and it was 160/110. He states having nausea and feeling heart flutter. Denies vomiting, diarrhea, constipation, chest pain. Pt has an upcoming appointment with Dr. Tsai to get his HTN under control. Blood work without any significant abnormality except for BUN is 26, creatinine 1.83 which is chronic for him, troponin was 0.01. Urinalysis is negative for UTI. Initially the patient reported that he didnt have any chest pain. He later stated he had a sharp chest pain but then he reported it was actually in the right side on the right rib cage area. He denies any chest pain or pressure at this time. In the ED course the patient was given aspirin, Nitro and labetalol. Patients blood pressure improved however he developed some jaw pain secondary to his TMJ and his blood pressure increased. Therefore the patient was given morphine for the pain and Lasix. Afterwards a recheck of the blood pressure was 140/82. Therefore the patient will be discharged home with follow-up from his primary care physician for better control of the blood pressure. I discussed all the findings and test results with the patient. Patient was instructed to return to the emergency room immediately if any of the symptoms return worsens. Plan of care was discussed with the patient and understands and agrees. All questions were answered at patient satisfaction. There were no further complaints or concerns. Lung exam before discharge: CTA B/ L. Good air exchange. No wheezing or crackles heard. CVS: S1 and S2 present. No murmurs appreciated. Patient is alert and oriented x 3. Patient is hemodynamically stable. Patient will be discharged home with follow up from his PCP in the next 2-3 days. - Diagnoses Provider Diagnoses: Uncontrolled hypertension Discharge - Sign-Out/Discharge Documenting (check all that apply): Patient Departure - Discharge home Patient Received Moderate/Deep Sedation with Procedure: No - Discharge Plan Condition: Stable Disposition: HOME Patient Education Materials: Hypertension (ED) Referrals: Cory Duron MD [Primary Care Provider] - Additional Instructions: FOLLOW UP WITH YOUR PRIMARY CARE PROVIDER IN 2-3 DAYS. RETURN TO THE EMERGENCY DEPARTMENT FOR ANY WORSENING OR NEW SYMPTOMS. - Attestation Statements Document Initiated by Gilbertibe: Yes Documenting Scribe: Bridgett Wong Provider For Whom Scribe is Documenting (Include Credential): Juan Heart MD Scribe Attestation: Bridgett Gooden, scribed for Juan Heart MD on 07/10/18 at 2042. Status of Scribe Document: Ready
[2018-07-10] MEDS ORDERED: Labetalol IV* 5 MG/ML 20 ML VIAL IV PUSH ONE (16:48)
[2018-07-10] MEDS ORDERED: Nitroglycerin TAB 0.4 MG* 0.4 MG TAB SL ONE (16:48)
[2018-07-10] MEDS ORDERED: Aspirin 81 mg CHEW TAB* 81 MG TAB.CHEW PO ONE (16:48)
[2018-07-10 16:50] LABS: ABS Eosinophils 0.1 10^3/ul (0-0.6); ABS Monocytes 0.3 10^3/ul (0-0.8); ABS Neutrophils 4.3 10^3/ul (1.5-7.7); Eosinophil % 1.4 %; Hematocrit 44 % (42-52); Hemoglobin 14.9 g/dL (14.0-18.0); Lymphocyte % 16.9 %; Mean Corpuscular HGB Conc 34 g/dL (31-36); Mean Corpuscular Hemoglobin 30 pg (27-31); Mean Corpuscular Volume 90 fL (80-94); Mean Platelet Volume 7.8 fL (7.4-10.4); Nucleated Red Blood Cells % 0.1; Platelet Count 227 10^3/uL (150-450); Red Blood Count 4.91 10^6 /uL (4.18-5.48); Red Cell Distribution Width 14 % (10.5-15); White Blood Count 5.7 10^3/uL (3.5-10.8)
[2018-07-10 17:08] LABS: Albumin 4.2 g/dL (3.2-5.2); Albumin/Globulin Ratio 1.6 (1-3); Calcium 9.6 mg/dL (8.6-10.3); Globulin 2.7 g/dL (2-4); Potassium 3.9 mmol/L (3.5-5.0); Total Bilirubin 0.6 mg/dL (0.2-1.0); Total Protein 6.9 g/dL (6.4-8.9)
[2018-07-10 17:10] LABS: Troponin I 0.01 ng/mL (<0.04)
[2018-07-10 17:12] LABS: CKMB ng/mL 1.9 ng/mL (0.6-6.3)
[2018-07-10 17:28] LABS: TSH (Thyroid Stimulating Horm) 1.11 mcIU/mL (0.34-5.60)
[2018-07-10 17:34] LABS: BUN/Creatinine Ratio 14.2 (8-20); EGFR African American 47.7 (>60); EGFR Non-African American 39.4 (>60)
[2018-07-10 19:38] LABS: Urine Appearance Clear; Urine Bacteria Absent (Absent); Urine Bilirubin Negative (Negative); Urine Blood Negative (Negative); Urine Color Yellow; Urine Glucose Negative (Negative); Urine Ketones Negative (Negative); Urine Nitrite Negative (Negative); Urine Protein 3+(>=500 mg/dL) (Negative); Urine Red Blood Cell Trace(0-2/hpf) (Absent); Urine Specific Gravity 1.019 (1.010-1.030); Urine Squamous Epithelial Cell Present (Absent); Urine Urobilinogen Negative (Negative); Urine White Blood Cell Trace(0-5/hpf) (Absent)
[2018-07-10] MEDS ORDERED: Furosemide IV* 10 MG/ML VIAL (40 MG) IV ONE (20:21)
[2018-07-10] MEDS ORDERED: Morphine 4 MG/ML VIAL (1 ml) 4 MG/ML VIAL IV ONE (20:21)
[2018-07-10 21:12] VITALS: BP 148/119
== END 2018-07-10 21:10 | disposition home or self-care (01) ==
LOC: ED 14:30
DX: I10 Essential (primary) hypertension (principal); E78.00 Pure hypercholesterolemia, unspecified; R94.31 Abnormal electrocardiogram [ECG] [EKG]; Z88.5 Allergy status to narcotic agent; Z88.6 Allergy status to analgesic agent; Z91.041 Radiographic dye allergy status; Z79.01 Long term (current) use of anticoagulants; Z79.899 Other long term (current) drug therapy; Z85.528 Personal history of other malignant neoplasm of kidney; Z90.5 Acquired absence of kidney; Z87.891 Personal history of nicotine dependence
CPT/HCPCS: 36415; 71046; 80053; 81003; 81015; 82550; 82553; 83605; 83880; 84443; 84484; 85025; 87086; 93005; 96374; 96375; 99284; A9270-GY; J1940; J2270

== ENCOUNTER 2023-07-19 20:10 | Observation (INO) ==
[2023-07-19 20:26] LABS: ABS Eosinophils 0.1 10^3/uL (0.0-0.5); ABS Lymphocytes 2.1 10^3/uL (1.0-4.8); ABS Monocytes 0.6 10^3/uL (0.0-1.1); ABS Neutrophils 3.7 10^3/uL (1.5-7.6); Hematocrit 43.3 % (38-53); Lymphocyte % 31.8 %; Mean Corpuscular Hemoglobin 30.8 pg (27-33); Mean Corpuscular Hgb Conc 34.6 g/dL (31-36); Mean Platelet Volume 7.5 fL (7.5-11.2); Nucleated Red Blood Cells % 0.1 %/100WBC (0.0-0.8); Platelet Count 222 10^3/uL (150-450); Red Blood Count 4.87 10^6/uL (4.06-5.63); Red Cell Distribution Width 13.9 % (12-17); White Blood Count 6.5 10^3/uL (3.6-10.2)
[2023-07-19 20:35] LABS: Activated Partial Thrombo Time 34.7 seconds (26.0-38.0); INR 1.01 (0.83-1.13)
[2023-07-19 21:10] LABS: Albumin 4.1 g/dL (3.2-5.2); Albumin/Globulin Ratio 1.5 (1-3); Calcium 9.6 mg/dL (8.6-10.3); Creatinine, Serum 2.22 mg/dL (0.67-1.17); Direct Bilirubin 0.1 mg/dL (0.03-0.18); Globulin 2.8 g/dL (2-4); HDL Cholesterol 23.1 mg/dL; Indirect Bilirubin 0.4 mg/dL (0.3-1.0); Potassium 4.7 mmol/L (3.5-5.0); Total Bilirubin 0.5 mg/dL (0.2-1.0); Total Protein 6.9 g/dL (6.4-8.9); eGFR CKD-EPI 34.1 (>60)
[2023-07-19] MEDS: Acetaminophen IV 1 GM/100ML 1,000 MG/100 ML BAG IV ONE (21:25)
[2023-07-19] MEDS: Ondansetron 4 mg VIAL 2 MG/ML 2 ml VIAL IV ONE (22:08)
[2023-07-19 23:00] LABS: High Sensitivity Troponin 1 Hr 4 pg/mL (<20)
[2023-07-19 23:12] LABS: TSH Ultra Thyroid Stim Horm 1.47 mcIU/mL (0.34-5.60)
[2023-07-19 23:23] LABS: Folate 10.74 ng/mL (5.90-24.80)
[2023-07-19] MEDS ORDERED: Sulfur Hexaflouride MICROSPHR 25 MG VIAL IV ONE (23:48)
[2023-07-19 23:53] LABS: Urine Appearance Clear; Urine Bilirubin Negative (Negative); Urine Blood Negative (Negative); Urine Color Light-Yellow; Urine Glucose 3+ (>=300 mg/dL) (Negative); Urine Ketones Negative (Negative); Urine Nitrite Negative (Negative); Urine Protein Negative (Negative); Urine Specific Gravity 1.012 (1.002-1.030); Urine Urobilinogen Negative (Negative)
[2023-07-20] MEDS: cloNIDine 0.3 MG PATCH 0.3 MG/24 HR 7 DAY PATCH TRANSDERM SCH (01:48)
[2023-07-20] MEDS ORDERED: Ondansetron 4 mg VIAL 2 MG/ML 2 ml VIAL IV PRN (03:19)
[2023-07-20] MEDS ORDERED: Regadenoson 0.4 MG/5 ML SYRINGE ONE (08:00)
[2023-07-20] MEDS: CMCS: Febuxostat 40 mg TAB (NF) PO SCH (08:14)
[2023-07-20] MEDS ORDERED: cloNIDine 0.3 MG PATCH 0.3 MG/24 HR 7 DAY PATCH TRANSDERM SCH (09:00)
[2023-07-20] MEDS: Labetalol 300 mg TAB PO SCH (10:08)
[2023-07-20 12:01] LABS: Calcium 9.4 mg/dL (8.6-10.3); Creatinine, Serum 2.2 mg/dL (0.67-1.17); Magnesium 2.2 mg/dL (1.9-2.7); Potassium 4.7 mmol/L (3.5-5.0); eGFR CKD-EPI 34.5 (>60)
[2023-07-21 06:04] LABS: Calcium 9.2 mg/dL (8.6-10.3); Creatinine, Serum 2.21 mg/dL (0.67-1.17); Potassium 4.6 mmol/L (3.5-5.0); eGFR CKD-EPI 34.3 (>60)
[2023-07-21] MEDS ORDERED: Sulfur Hexaflouride MICROSPHR 25 MG VIAL ONE (09:38)
[2023-07-21 13:36] VITALS: BP 101/71
== END 2023-07-21 16:07 | disposition home or self-care (01) ==
LOC: EDHOLD 20:10 → ED 20:10 → SUATTDRO 21:50 → MEDTELE 23:42
PROVIDERS: ADMIT Internal Medicine; ATTEND Student in an Organized Health Care Education/Training Program